=== PATIENT | female | born 1985 | race Caucasian/White ===

== ENCOUNTER 2018-06-01 14:42 | Emergency (ER) | payer MEDICAID, OTHER ==
[~2018-06-01] VITALS: Ht 165.1 cm; Wt 82.0 kg
[2018-06-01 14:50] VITALS: BP 129/78
[2018-06-01] MEDS ORDERED: BACITRACIN ZINC OINT UDPKT TOP ONE (16:45)
== END 2018-06-01 17:40 | disposition home or self-care (01) ==
LOC: ER 14:42
DX: S80.212A Abrasion, left knee, initial encounter (principal); W01.0XXA Fall on same level from slipping, tripping and stumbling without subsequent striking against object, initial encounter; Y93.89 Activity, other specified; Y92.89 Other specified places as the place of occurrence of the external cause; R03.0 Elevated blood-pressure reading, without diagnosis of hypertension
CPT/HCPCS: 99284; Z7610